=== PATIENT | female | born 1935 | race Caucasian/White ===

== ENCOUNTER 2017-12-21 00:42 | Inpatient (IN) | payer MEDICARE, BC ==
[~2017-12-21] VITALS: Ht 157.5 cm; Wt 67.4 kg
--- NOTE | 2017-12-21 00:47 | NUR ---
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 PATIENT IS AAOX2 UPON ARRIVAL, NAD NOTED. VSS. NONDIAPHORETIC. GOWNED. PLACED ON CARDIAC AND VS MONITORING. COMFORT AND SAFETY MEASURES IN PLACE. DR NEGRO AT BEDSIDE TO EVALUATE PATIENT.
[2017-12-21] MEDS ORDERED: ONDANSETRON HCL/PF 4 MG/2 ML VIAL ONE ×2 (00:48→01:58)
--- NOTE | 2017-12-21 00:53 | NUR ---
medicated patient as ordered by Dr Das.
[2017-12-21] MEDS ORDERED: ONDANSETRON HCL/PF 4 MG/2 ML VIAL IVP ONE (01:00)
[2017-12-21] MEDS ORDERED: IV NS 0.9% 1,000 ML BAG IV ONE ×2 (01:00→02:30)
[2017-12-21] MEDS ORDERED: METF500T7 PO (01:02)
[2017-12-21] MEDS ORDERED: AMLO1TAB39 PO (01:02)
[2017-12-21] MEDS ORDERED: EVOL140S IM (01:02)
[2017-12-21] MEDS ORDERED: LEVO50TA PO (01:02)
[2017-12-21] MEDS ORDERED: GLIM4TAB PO (01:02)
[2017-12-21] MEDS ORDERED: METO25TA6 PO (01:02)
[2017-12-21] MEDS ORDERED: INSU100V7 SQ (01:02)
[2017-12-21 01:18] LABS: BASOPHILS % (AUTO) 0.3 % (0.0-2.0); EOSINOPHILS # (AUTO) 0.1 /CMM (0.0-0.7); EOSINOPHILS % (AUTO) 0.6 % (0.0-6.0); HEMATOCRIT 42 % (33-45); HEMOGLOBIN 13.8 g/dL (11.5-14.8); LYMPHOCYTES # (AUTO) 0.8 /CMM (0.8-4.8); LYMPHOCYTES % (AUTO) 4.7 % (20.0-44.0); MEAN CORPUSCULAR HEMOGLOBIN 28 PG (26.0-33.0); MEAN CORPUSCULAR HGB CONC 33 g/dl (31.0-36.0); MEAN CORPUSCULAR VOLUME 84 fL (82-100); MONOCYTES % (AUTO) 5.5 % (2.0-12.0); NEUTROPHILS # (AUTO) 15.6 /CMM (1.8-8.9); NEUTROPHILS % (AUTO) 88.9 % (43.0-81.0); PLATELET COUNT (AUTO) 231 /CMM (150-450); RDW COEFFICIENT OF VARIATION 14.9 (11.5-15.0); RED BLOOD CELL COUNT(AUTO) 4.98 MIL/uL (4.0-5.2); WHITE BLOOD COUNT (AUTO) 17.6 K/uL (4.3-11.0)
[2017-12-21 01:36] LABS: INR 0.95 (0.87-1.13)
[2017-12-21 01:40] LABS: CALCIUM, SERUM 8.8 mg/dL (8.5-10.1); CARBON DIOXIDE 23 mmol/L (21-32); CHLORIDE 100 mmol/L (98-107); CREATININE 1.4 mg/dL (0.6-1.3); GLUCOSE 177 mg/dL (74-106); POTASSIUM 3.9 mmol/L (3.5-5.1); SODIUM SERUM 137 mmol/L (136-145); UREA NITROGEN, BLOOD 24 mg/dL (7-18)
[2017-12-21 01:47] LABS: ALANINE AMINOTRANSFERASE 50 U/L (12-78); ALBUMIN 3.9 g/dL (3.4-5.0); ALKALINE PHOSPHATASE 87 U/L (46-116); ASPARTATE AMINOTRANSFERASE 28 U/L (15-37); BILIRUBIN,DIRECT 0.1 mg/dL (0.0-0.2); BILIRUBIN,TOTAL 0.4 mg/dL (0.2-1.0); TOTAL PROTEIN, SERUM 7.9 g/dL (6.4-8.2)
[2017-12-21 01:48] LABS: TROPONIN I < 0.017 ng/mL (0.00-0.056)
[2017-12-21] MEDS ORDERED: ONDANSETRON HCL/PF 4 MG/2 ML VIAL IV ONE (02:00)
[2017-12-21] MEDS ORDERED: IV NS 0.9% 1,000 ML IV PRN (02:38)
[2017-12-21 02:40] VITALS: BP 134/67
--- NOTE | 2017-12-21 02:43 | NUR ---
REPORT GIVEN TO ESTEVAN SAMPSON FOR ADMISSION AND MACY. TRANSFERRED PATIENT TO TELE BED VIA ALS PROTOCOL, NO INCIDENT NOTED.
--- NOTE | 2017-12-21 02:44 | NUR ---
RN NOTES ADMITTED A 82 YRS OLD FEMALE PT FROM ER VIA [facility] [place] WITH PRIMARY DIAGNOSIS OF SYNCOPE. PT IS ALERT AND ORIENTED X3, DENIES PAIN. PT STILL NAUSEATED AND VOMITED ONCE. VITAL SIGNS STABLE. ATTACHED TO TELEMONITOR WHICH READS SINUS RHYTHM WITH HEART RATE AT 92. SKIN AND BODY ASSESSMENT DONE, SKIN CLEAR AND INTACT. ALL ORDERS NOTED AND CARRIED OUT. SAFETY MEASURES AND FALL PRECAUTION OBSERVED. WILL CONTINUE TO MONITOR PT.
[2017-12-21] MEDS ORDERED: ZOLPIDEM TARTRATE 5 MG TABLET PO PRN (03:00)
[2017-12-21] MEDS ORDERED: MORPHINE SULFATE INJ 2 MG/ML DISP.SYRIN IV PRN (03:00)
[2017-12-21] MEDS ORDERED: Z GUARD REMEDY 2 OZ OINT TP PRN (03:00)
[2017-12-21] MEDS ORDERED: HYDROCODONE/APAP 5/325MG 1 EACH TABLET PO PRN (03:00)
[2017-12-21] MEDS ORDERED: MAG HYDROX/AL HYDROX/SIMETH 30 ML UDC PO PRN (03:00)
[2017-12-21] MEDS ORDERED: MAGNESIUM HYDROXIDE 30 ML UDC PO PRN (03:00)
[2017-12-21] MEDS ORDERED: ACETAMINOPHEN 325 MG TABLET PO PRN (03:00)
[2017-12-21] MEDS ORDERED: hydrALAZINE HCL 25 MG TABLET PO PRN (03:00)
[2017-12-21] MEDS ORDERED: ONDANSETRON HCL/PF 4 MG/2 ML VIAL IVP PRN (03:00)
[2017-12-21] MEDS ORDERED: CEFTRIAXONE 1 G VIAL ONE (03:24)
[2017-12-21] MEDS ORDERED: ENOXAPARIN SODIUM 40 MG/0.4 ML DISP.SYRIN SQ ONE (03:24)
[2017-12-21] MEDS: CEFTRIAXONE 1 G in IV D5W 50 ML IV SCH (03:32)
[2017-12-21] MEDS: ENOXAPARIN SODIUM 40 MG/0.4 ML DISP.SYRIN SQ SCH (03:33)
--- NOTE | 2017-12-21 07:05 | NUR ---
RN NOTES PT ASLEEP, ON ROOM AIR AND TOLERATED WELL. VITAL SIGNS STABLE. DENIES PAIN AND DISCOMFORT. NO MORE EPISODE OF VOMITING AFTER ADMISSION. TELEMONITOR READS SINUS RHYTHM AT 99. PLAN OF CARE DISCUSSED WITH THE PT. ENDORSED TO MORNING RN FOR CONTINUITY OF CARE.
[2017-12-21 08:00] VITALS: BP 128/74
--- NOTE | 2017-12-21 08:00 | NUR ---
LICENSED EMBALMER AM NOTES RECEIVED PT ALERT AND ORIENTED X4, DENIES PAIN. NO NAUSEA OR VOMITING EPISODE ON OUR SHIFT.ASSISTED TO TOILET AND WAS VERY UNSTEADY.HIGH FALL RISK.BED ALARM AND CALL LIGHT WITHIN REACH AT ALL TIMES.SKIN CLEAR AND INTACT.SEEN BY P.T.SAFETY MEASURES AND FALL PRECAUTION OBSERVED. WILL CONTINUE TO MONITOR PT.
[2017-12-21] MEDS: IV NS 0.9% 1,000 ML IV PRN ×2 (09:15→13:43)
--- NOTE | 2017-12-21 09:15 | NUR ---
INCREASED PT'S PRESENT IVF OF NS TO 200 ML/HR.ENCOURAGED FLUIDS.PT VERBALIZED UNDERSTANDING OF INSTRUCTIONS GIVEN.
[2017-12-21] MEDS ORDERED: INSULIN REGULAR, HUMAN 100 UNIT/ML 3 ML VIAL SQ PRN (11:00)
[2017-12-21] MEDS: GLIMEPIRIDE 4 MG TABLET PO SCH ×2 (11:39→16:46)
[2017-12-21 11:59] LABS: APPEARANCE,URINE CLEAR (CLEAR); BILIRUBIN,URINE NEGATIVE (NEGATIVE); BLOOD, URINE NEGATIVE Ery/uL (NEGATIVE); COLOR,URINE YELLOW (YELLOW); KETONES,URINE 1+ (NEGATIVE); LEUKOCYTE ESTERASE ,URINE NEGATIVE (NEGATIVE); NITRITE, URINE NEGATIVE (NEGATIVE); PROTEIN,URINE NEGATIVE (NEGATIVE); UGLUCOSE NEGATIVE (NEGATIVE); UROBILINOGEN,URINE 0.2 EU/dL (0.2)
--- NOTE | 2017-12-21 12:00 | NUR ---
BLOOD SUGAR 150 AND ADMINISTERED HER OWN INSULIN.SENT ALL HER HOME MEDS HOME WITH HER DAUGHTER.PT TEACHING DONE THAT SHE CAN'T TAKE ANY HOME MEDS ON HER OWN.WE EITHER KEEP THEM AND SENT THEM TO THE PHARMACY OR FAMILY BRINGS THEM HOME
[2017-12-21 12:11] LABS: BACTERIA,URINE None seen /HPF (None Seen); RBC,URINE NONE SEEN /HPF (0-2); SQUAMOUS EPITHELIAL CELL,UR Few /HPF (None Seen); WBC,URINE NONE SEEN /HPF (0-3)
--- NOTE | 2017-12-21 12:16 | NUR ---
2ND AND LAST DOSE OF KDUR 20 MEQ PO GIVEN NOW.THE KDUR 20MEQ AT 1031AM WASN'T GIVEN-AND FELL OUT OF THE OMNICELL SYSTEM,PHARMACIST MADE AWARE.
[2017-12-21] MEDS: BLOOD SUGAR DIAGNOSTIC 1 EACH STRIP IN SCH ×3 (13:37→21:04)
[2017-12-21] MEDS: AMLODIPINE BESYLATE 5 MG TABLET PO SCH (13:53)
--- NOTE | 2017-12-21 15:56 | NUR ---
PATIENT REPORTED NAUSEA AND REQUESTED AN ANTIEMETIC. RN DISPENSED ZOFRAN FROM [employer], JUAN INTO THE SYRINGE TO ADMINISTER ORDERED. ONCE MEDICATION WAS JUAN INTO THE SYRINGE PATIENT STATED SHE DOES NOT WANT ZOFRAN. MEDICATION WAS NOT ADMINISTERED. MEDICATION DISPOSED OF IN PHARMACEUTICAL WASTE BIN IN THE MEDICATION ROOM. NEEDLE DISPOSE INTO SHARPS CONTAINER PER PROTOCOL. CHARGE NURSE NOTIFIED.
[2017-12-21 16:00] VITALS: BP 111/58
--- NOTE | 2017-12-21 16:42 | NUR ---
Patient resides at the [facility] [phone], she is ambulatory and supervision with adl's. Has no DME or homehealth reported. Family are involved and supportive. Plan to return to [facility] once dc. Addendum: 12/21/17 at 1643 by JASON WISDOM RN Amended: Links added.
[2017-12-21] MEDS: METOPROLOL TARTRATE 25 MG TABLET PO SCH (16:47)
[2017-12-21] MEDS: FAMOTIDINE (20 MG) 20 MG TABLET PO SCH (16:47)
--- NOTE | 2017-12-21 18:32 | NUR ---
MED SURG 3 RN CLOSING NOTE PATIENT ALERT AND ORIENTED X3. VITALS SIGNS STABLE, RESPIRATIONS EVEN AND UNLABORED ON ROOM AIR WITH OXYGEN SATURATION OF 96%. PATIENT DENIES ANY PAIN OR DISTRESS. 20G IV AT LAC INTACT AND 0.9NS INFUSING WELL WITHOUT COMPLICATION. PATIENT HAS BRP AND IS AMBULATORY WITH ASSIST. CALL LIGHT WITHIN REACH AND PATIENT HAS BEEN INSTRUCTED TO CALL FOR ASSISTANCE WHEN NEEDING TO GET UP AND GO TO THE BATHROOM, PATIENT VERBALIZED UNDERSTANDING. BED IN LOW POSITION WITH TWO RAILS UP AND CALL LIGHT WITHIN REACH.
--- NOTE | 2017-12-21 19:25 | NUR ---
RN OPEN NOTES RECEIVED PATIENT AWAKE IN BED. A/O X4. NO SIGNS OF DISTRESS OR DISCOMFORT. BREATHING EVEN AND UNLABORED. IV ACCESS IN LAC, PATENT AND INTACT, NO SIGNS OF REDNESS OR INFILTRATION. BED IN LOW LOCKED POSITION WITH SIDE RAILS X3. CALL LIGHT WITHIN REACH. WILL CONTINUE TO MONITOR,
[2017-12-21 20:00] VITALS: BP 130/70
[2017-12-21 20:16] VITALS: BP 130/70
[2017-12-21] MEDS: DEXTROSE 50%-WATER 50 ML DISP.SYRIN IV PRN (21:06)
--- NOTE | 2017-12-21 21:10 | NUR ---
RN NOTES PATIENT BS 57. NO OTHER S/S OF HYPOGLYCEMIA. PATIENT ALERT AND ORIENTED. ADMINISTERED DEXTROSE 50% PER PROTOCOL. MD MADE AWARE. WILL CONTINUE TO MONITOR.
[2017-12-21] MEDS ORDERED: LOPERAMIDE HCL (2 MG CAP) 2 MG CAPSULE PO PRN (21:30)
--- NOTE | 2017-12-21 21:35 | NUR ---
RN NOTES RECHECK BS POST DEXTROSE 50% ADMINISTRATION. BS 194. WILL CONTINUE TO MONITOR.
[2017-12-21] MEDS ORDERED: LOPERAMIDE HCL (2 MG CAP) 2 MG CAPSULE PO ONE (21:36)
[2017-12-21] MEDS ORDERED: INSULIN GLARGINE, 100 UNIT/ML CARTRIDGE SQ SCH (22:00)
[2017-12-22] MEDS: CEFTRIAXONE 1 G in IV D5W 50 ML IV SCH (02:25)
[2017-12-22] MEDS: ENOXAPARIN SODIUM 40 MG/0.4 ML DISP.SYRIN SQ SCH (02:33)
[2017-12-22] MEDS: IV NS 0.9% 1,000 ML IV PRN (04:27)
[2017-12-22] MEDS: BLOOD SUGAR DIAGNOSTIC 1 EACH STRIP IN SCH ×2 (06:45→12:39)
[2017-12-22] MEDS: DEXTROSE 50%-WATER 50 ML DISP.SYRIN IV PRN (07:05)
[2017-12-22 07:20] LABS: BASOPHILS % (AUTO) 0.4 % (0.0-2.0); EOSINOPHILS # (AUTO) 0.2 /CMM (0.0-0.7); EOSINOPHILS % (AUTO) 2.6 % (0.0-6.0); HEMATOCRIT 33 % (33-45); HEMOGLOBIN 11.1 g/dL (11.5-14.8); LYMPHOCYTES # (AUTO) 1.7 /CMM (0.8-4.8); LYMPHOCYTES % (AUTO) 19.5 % (20.0-44.0); MEAN CORPUSCULAR HEMOGLOBIN 28 PG (26.0-33.0); MEAN CORPUSCULAR HGB CONC 34 g/dl (31.0-36.0); MEAN CORPUSCULAR VOLUME 84 fL (82-100); MONOCYTES # (AUTO) 0.8 /CMM (0.1-1.30); MONOCYTES % (AUTO) 9.3 % (2.0-12.0); NEUTROPHILS # (AUTO) 5.9 /CMM (1.8-8.9); NEUTROPHILS % (AUTO) 68.2 % (43.0-81.0); PLATELET COUNT (AUTO) 172 /CMM (150-450); RDW COEFFICIENT OF VARIATION 15.1 (11.5-15.0); RED BLOOD CELL COUNT(AUTO) 3.91 MIL/uL (4.0-5.2); WHITE BLOOD COUNT (AUTO) 8.6 K/uL (4.3-11.0)
--- NOTE | 2017-12-22 07:25 | NUR ---
RN CLOSING NOTES PATIENT AWAKE IN BED. A/O X4. NO SIGNS OF DISTRESS OR DISCOMFORT. BREATHING EVEN AND UNLABORED. PATIENT BS 49, INITIALLY REFUSED D5W, WANTED OJ AND ATE A BANANA INSTEAD. REPEAT BS 44, ADMINISTERED D5W. PATIENT BS NOW 178. PATIENT HAS BEEN ASYMPTOMATIC, NO OTHER S/S OF HYPOGLYCEMIA NOTED. MD MADE AWARE. IV ACCESS IN LAC WITH NS INFUSING, PATENT AND INTACT, NO SIGNS OF REDNESS OR INFILTRATION. ALL NEEDS MET. NO SIGNIFICANT CHANGES THROUGH THE NIGHT. BED IN LOW LOCKED POSITION WITH SIDE RAILS X3. CALL LIGHT WITHIN REACH. WILL ENDORSE TO AM SHIFT FOR MACY.
[2017-12-22 07:35] LABS: ALANINE AMINOTRANSFERASE 38 U/L (12-78); ALBUMIN 2.9 g/dL (3.4-5.0); ALKALINE PHOSPHATASE 47 U/L (46-116); ASPARTATE AMINOTRANSFERASE 27 U/L (15-37); BILIRUBIN,TOTAL 0.3 mg/dL (0.2-1.0); CALCIUM, SERUM 7.8 mg/dL (8.5-10.1); CARBON DIOXIDE 24 mmol/L (21-32); CHLORIDE 111 mmol/L (98-107); MAGNESIUM 1.5 mg/dL (1.8-2.4); PHOSPHORUS 2.4 mg/dL (2.5-4.9); POTASSIUM 3.7 mmol/L (3.5-5.1); SODIUM SERUM 146 mmol/L (136-145); TOTAL PROTEIN, SERUM 6.4 g/dL (6.4-8.2); UREA NITROGEN, BLOOD 20 mg/dL (7-18)
[2017-12-22 07:38] LABS: GLUCOSE 48 mg/dL (74-106)
[2017-12-22 07:39] LABS: CHOLESTEROL 128 mg/dL (<200); HDL CHOLESTEROL 43 mg/dL (40-60); LDL 66 mg/dL (0-99); TRIGLYCERIDES 132 mg/dL (30-150)
[2017-12-22 07:45] LABS: TROPONIN I < 0.017 ng/mL (0.00-0.056)
[2017-12-22 08:00] VITALS: BP 132/67
[2017-12-22] MEDS ORDERED: Medication Not On Formulary EA (Amlodipine Bes/Olmesartan Med (Azor 5-40 Mg Tablet) 1 EA PO SCH (09:00)
[2017-12-22] MEDS ORDERED: LEVOTHYROXINE SODIUM 50 MCG TABLET PO SCH (09:00)
[2017-12-22] MEDS ORDERED: IV NS 0.9% 1,000 ML IV PRN (09:05)
[2017-12-22] MEDS ORDERED: NEUTRA PHOS 1 POWD.PACKET PO SCH (09:30)
[2017-12-22] MEDS: GLIMEPIRIDE 4 MG TABLET PO SCH (10:01)
[2017-12-22] MEDS: FAMOTIDINE (20 MG) 20 MG TABLET PO SCH (10:01)
[2017-12-22 10:02] VITALS: BP 132/67
[2017-12-22] MEDS: AMLODIPINE BESYLATE 5 MG TABLET PO SCH (10:02)
[2017-12-22] MEDS: METOPROLOL TARTRATE 25 MG TABLET PO SCH (10:02)
[2017-12-22] MEDS: Magnesium 1GM/D5W 100ML PREMIX 100 ML IV SCH ×2 (10:42→11:56)
--- NOTE | 2017-12-22 12:39 | NUR ---
MS/RN PT REFUSED INSULIN COVERAGE. RA MARTINEZ SEEN THE PT AND PLANNING TO D/C PT SHORTLY. PT'S DAUGHTER MADE AWARE OF PENDING DISCHARGE AND WILL PICK THE PT UP BY 1400
[2017-12-22] MEDS ORDERED: LOPE2CAP40 PO (12:50)
[2017-12-22] MEDS ORDERED: CEPH-570 PO (12:50)
--- NOTE | 2017-12-22 14:15 | NUR ---
MS/RN PT LEFT WITH DAUGHTER VIA PRIVATE TRANSPORTATION. PRESCRIPTIONS AND EXIT CARE INSTRUCTIONS GIVEN AND UNDERSTOOD. VALUABLES RETURNED,ID BAND REMOVED. VSS. PT IS AMBULATORY .
== END 2017-12-22 14:22 | DRG 871 ==
LOC: ER 00:46 → TELE 02:38 → MED 09:51
PROVIDERS: ADMIT Internal Medicine; ATTEND Internal Medicine
DX: A41.9 Sepsis, unspecified organism (principal); N17.0 Acute kidney failure with tubular necrosis; N39.0 Urinary tract infection, site not specified; E86.0 Dehydration; R55 Syncope and collapse; E03.9 Hypothyroidism, unspecified; E78.5 Hyperlipidemia, unspecified; I12.9 Hypertensive chronic kidney disease with stage 1 through stage 4 chronic kidney disease, or unspecified chronic kidney disease; N18.9 Chronic kidney disease, unspecified; E83.42 Hypomagnesemia; E83.39 Other disorders of phosphorus metabolism; E11.649 Type 2 diabetes mellitus with hypoglycemia without coma; Z79.84 Long term (current) use of oral hypoglycemic drugs
CPT/HCPCS: 36415; 70450-TC; 71045-TC; 80048-TC; 80053-TC; 80061-TC; 80076-TC; 81000-TC; 82962-TC; 83735-TC; 84100-TC; 84484-TC; 85025-TC; 85730-TC; 86850-TC; 87040-TC; 87081-TC; 87086-TC; 93307-TC; A4606; J0696; J1650; J1815; J2405; J3475; J7030; J7060; Z7610